=== PATIENT | male | born 1960 | race Caucasian/White ===

== ENCOUNTER 2021-04-05 07:28 | Day surgery (SDC) | payer OTHER ==
[~2021-04-05 07:28] MED LIST: Lactated Ringers 1,000 ML IV SCH; Lidocaine 1%/Sod Bicarbonate in NS 8.4% 1 ML Syringe IDERM PRN; Sodium Chloride 0.9% 10 ML Syringe FLUSH PRN
--- NOTE | 2021-04-05 08:05 | PCM.PREANE ---
Preanesthetic Assessment - Procedure Proposed Procedure: Wide local excision of melanoma back, sentinel lymph node excision, lymphoscintigraphy for lymph node mapping. - Anesthesia/Transfusion/Family Hx Anesthesia History: Prior Anesthesia Without Reaction Family History of Anesthesia Reaction: No Transfusion History: No Prior Transfusion(s) Intubation History: Unknown - Review of Systems General: No Symptoms Pulmonary: No Symptoms (ETOH: sober 5 years.) Cardiovascular: No Symptoms (CAD, HTN, elevated lipids), Palpitations (PTSD) Gastrointestinal: No Symptoms (GERD-improved) Neurological: No Symptoms (Lower back pain chronic (5)), Syncope Other: Reports: None (History of kidney disease.), Diabetes (am blood sugar= 237), Depression (PTSD), Anxiety - Physical Assessment NPO Status Date: 04/04/21 NPO Status Time: 22:00 Vital Signs: HR: 79 B/P: 141/85 Sat: 95% Temp: 97.3 Resp: 20 Height: 1.85 m Weight: 155 kg ASA Class: 3 Mental Status: Alert & Oriented x3 Airway Class: Mallampati = 2 Dentition: Reports: Normal Dentition, Caries Thyro-Mental Finger Breadths: 3 Mouth Opening Finger Breadths: 3 ROM/Head Extension: Full Lungs: Clear to Auscultation, Normal Respiratory Effort Cardiovascular: Regular Rate, Regular Rhythm, No Murmurs - Lab Values: All labs reviewed and noted and within acceptable ranges to proceed with scheduled procedure. - Imaging/EKG Impressions: EKG: SR rate=82, consider LAE, LAD, abnormal Rwave progression - Allergies Allergies/Adverse Reactions: Allergies Allergy/AdvReac Type Severity Reaction Status Date / Time No Known Allergies Allergy Verified 04/02/21 12:53 - Anesthesia Plan Pre-Op Medication Ordered: None - Acknowledgements Anesthesia Type Planned: General Anesthesia Pt an Appropriate Candidate for the Planned Anesthesia: Yes Alternatives and Risks of Anesthesia Discussed w Pt/Guardian: Yes Pt/Guardian Understands and Agrees with Anesthesia Plan: Yes PreAnesthesia Questionnaire HEENT History: Reports: Impaired Vision Cardiovascular History: Reports: Other (See Below) Other Cardiovascular History: abnormal stress test, high cholesterol Respiratory History: Reports: None Gastrointestinal History: Reports: Colon Polyp, GERD Genitourinary History: Reports: None HARP REPAIRER History: Reports: None Musculoskeletal History: Reports: None Neurological History: Reports: Other (See Below) Other Neuro History: syncope Psychiatric History: Reports: Anxiety, Depression, PTSD Endocrine/Metabolic History: Reports: Diabetes, Type II Hematologic History: Reports: None Immunologic History: Reports: None Oncologic (Cancer) History: Reports: None Dermatologic History: Reports: None - Infectious Disease History Infectious Disease History: Reports: None - Past Surgical History HEENT Surgical History: Reports: None Cardiovascular Surgical History: Reports: None Respiratory Surgical History: Reports: None GI Surgical History: Reports: Colonoscopy Female Surgical History: Reports: None Male Surgical History: Reports: None Endocrine Surgical History: Reports: None Neurological Surgical History: Reports: None Musculoskeletal Surgical History: Reports: Knee Replacement, Other (See Below) Other Musculoskeletal Surgeries/Procedures:: hand surgery Oncologic Surgical History: Reports: None Dermatological Surgical History: Reports: None - SUBSTANCE USE Tobacco Use Status *Q: Never Tobacco User Recreational Drug Use History: No - HOME MEDS Home Medications: Home Meds Ascorbic Acid [Vitamin C] 1,000 mg PO DAILY 04/02/21 [History] Aspirin 81 mg PO DAILY 04/02/21 [History] Cholecalciferol (Vitamin D3) [Vitamin D3] 1,000 unit PO DAILY 04/02/21 [History] Insulin Aspart [NovoLOG] 1 dose SQ TIDAC PRN 04/02/21 [History] Insulin Detemir [Levemir] 20 units SQ BEDTIME 04/02/21 [History] Omeprazole Magnesium [Prilosec Otc] 20 mg PO DAILY 04/02/21 [History] Prazosin [Minpress] 1 mg PO BEDTIME 04/02/21 [History] Zinc 50 mg PO DAILY 04/02/21 [History] atorvaSTATin Calcium [Lipitor] 40 mg PO BEDTIME 04/02/21 [History] glipiZIDE [Glucotrol XL] 2.5 mg PO BID 04/02/21 [History] lisinopriL [Lisinopril] 20 mg PO DAILY 04/02/21 [History] metFORMIN HCl [Metformin HCl] 1,000 mg PO DAILY 04/02/21 [History] tiZANidine [Zanaflex] 4 mg PO BEDTIME 04/02/21 [History] - CURRENT (IN HOUSE) MEDS Current Meds: Current Medications Lactated Ringer's (Ringers, Lactated) 1,000 mls @ 125 mls/hr IV ASDIRECTED SUSHIL Stop: 04/05/21 23:00 Lidocaine/Sodium Bicarbonate (Lidocaine 1%/Sod Bicarbonate In Ns 8.4% 1 Ml Syringe) 0.25 ml IDERM ONETIME PRN PRN Reason: Prior to IV Start Stop: 04/05/21 18:00 Sodium Chloride (Sodium Chloride 0.9% 10 Ml Syringe) 10 ml FLUSH ASDIRECTED PRN PRN Reason: Keep Vein Open Stop: 04/05/21 18:00
[2021-04-05] MEDS ORDERED: Midazolam 1 MG/ML 2 ML SDV ONE (08:16)
[2021-04-05] MEDS ORDERED: fentaNYL 250 MCG/5 ML SDV ONE (08:16)
[2021-04-05] MEDS ORDERED: Propofol 200 MG/20 ML SDV ONE (08:16)
[2021-04-05] MEDS ORDERED: Rocuronium 50 MG/5 ML Vial ONE ×2 (08:17→13:06)
[2021-04-05] MEDS ORDERED: Albuterol 0.083% 2.5 MG/3 ML Neb Soln NEB ONE (09:00)
[2021-04-05] MEDS ORDERED: ceFAZolin 1 GM Vial ONE ×3 (10:00→15:13)
[2021-04-05] MEDS ORDERED: Dexamethasone 4 MG/ML 5 ML MDV ONE (10:01)
[2021-04-05] MEDS ORDERED: Ondansetron 4 MG/2 ML SDV ONE (10:01)
--- NOTE | 2021-04-05 10:43 | NM ---
Lymphoscintigraphy: 1.0 mCi of technetium 99m filtered sulfur colloid was given by ordering physician. Scintigraphic imaging was then obtained in coronal planes overlying both chest and axillary regions. Additional axial views were obtained of the pelvis. Findings: Multiple lymph nodes are enhancing within both axillary regions. No abnormal activity is seen within either inguinal regions. Impression: 1. Increased activity is noted with lymph nodes within both axillary regions. Diagnostic code #3
[2021-04-05] MEDS ORDERED: Methylene Blue 50 MG/10 ML Ampule ONE (11:07)
[2021-04-05] MEDS ORDERED: Dextrose 5% in Water 100 ML ONE (11:08)
[2021-04-05] MEDS ORDERED: Lactated Ringers 1,000 ML ONE ×2 (11:22→12:28)
[2021-04-05] MEDS: Lidocaine 1% with EPINEPHrine 1:100,000 10 ML MDV ONE ×2 (11:26→13:14)
[2021-04-05] MEDS ORDERED: ePHEDrine 50 MG/ML SDV ONE ×2 (11:42→13:35)
[2021-04-05] MEDS ORDERED: Lidocaine 1% with EPINEPHrine 1:100,000 10 ML MDV ONE ×2 (11:46→13:18)
[2021-04-05] MEDS ORDERED: Bacitracin Oint 15 GM Tube ONE ×2 (12:42→16:47)
[2021-04-05] MEDS ORDERED: Glycopyrrolate 0.2 MG/ML SDV ONE ×2 (13:07)
[2021-04-05] MEDS ORDERED: Ketorolac 30 MG/ML SDV ONE (13:07)
[2021-04-05] MEDS ORDERED: fentaNYL 100 MCG/2 ML SDV ONE (14:37)
[2021-04-05] MEDS ORDERED: Albuterol 6.7 GM Inhaler INH ONE (14:49)
[2021-04-05] MEDS ORDERED: fentaNYL 100 MCG/2 ML SDV IVPUSH PRN (15:44)
[2021-04-05] MEDS ORDERED: HYDROmorphone 0.5 MG/0.5 ML Syringe IVPUSH PRN (15:44)
[2021-04-05] MEDS ORDERED: Ondansetron 4 MG/2 ML SDV IVPUSH PRN (15:44)
--- NOTE | 2021-04-05 15:46 | PCM.POSTAN ---
POST ANESTHESIA ASSESSMENT - MENTAL STATUS Mental Status: Confused - VITAL SIGNS Vital Signs: Last Vital Signs Temp 36.6 C 04/05/21 15:35 Pulse 95 04/05/21 15:35 Resp 19 04/05/21 15:35 BP 159/78 H 04/05/21 15:35 Pulse Ox 98 04/05/21 15:35 - RESPIRATORY Respiratory Status: Respiratory Rate WNL, Airway Patent, O2 Saturation Stable - CARDIOVASCULAR CV Status: Pulse Rate WNL, Elevated Blood Pressure - GASTROINTESTINAL GI Status: No Symptoms - PAIN Pain Score: 0 - POST OP HYDRATION Hydration Status: Adequate & Stable
--- NOTE | 2021-04-05 16:19 | PCM48HPAN ---
Post Anesthesia Note - EVALUATION WITHIN 48HRS OF ANESTHETIC Vital Signs in Normal Range: Yes Patient Participated in Evaluation: Yes Respiratory Function Stable: Yes Airway Patent: Yes Cardiovascular Function Stable: Yes Hydration Status Stable: Yes Pain Control Satisfactory: Yes Nausea and Vomiting Control Satisfactory: Yes Mental Status Recovered: Yes Vital Signs: Last Vital Signs Temp 36.6 C 04/05/21 15:35 Pulse 74 04/05/21 16:11 Resp 22 H 04/05/21 16:11 BP 153/82 H 04/05/21 16:11 Pulse Ox 99 04/05/21 16:11
[2021-04-05 17:00] VITALS: BP 162/83; PULSE 78
--- NOTE | 2021-04-05 17:26 | OR ---
DATE OF OPERATION: 04/05/2021 SURGEON: Marlyn Montanez MD PREOPERATIVE DIAGNOSIS: Malignant melanoma. POSTOPERATIVE DIAGNOSIS: Malignant melanoma. OPERATION PERFORMED: 1. Injection of radioactive tracer (technetium-99m) for for sentinel lymph node mapping (lymphoscintigraphy) 2. Wide local excision of the malignant melanoma in right mid back, wound size, 5.3 cm x 5.3 cm. 3. Rhomboid ([place]homberg) fasciocutaneous flap reconstruction 4. [place] lymph node mapping using both technetium-99m and methylene blue. 5. [place] lymph node excision in bilateral axillary sites. ANESTHESIA: General endotracheal with local anesthetic consisting 1% lidocaine with epinephrine 1:100,000. Total local anesthetic use was 60 mL. ESTIMATED BLOOD LOSS: 50 mL. COMPLICATIONS: None. INDICATION AND CONSENT: Mr. Moscoso is a 61-year-old male who was found to have a malignant melanoma of the right mid back that depth was 8 mm and with positive deep margins. After shave biopsy back in January, the patient underwent a PET scan, which did not show any malignant distant disease. I saw the patient in my clinic and we discussed, did an exam, did not find any clinically palpable nodes in the axilla, supraclavicular, or inguinal. Therefore, I offered the patient a wide local excision with sentinel lymph node biopsy using lymphoscintigraphy. We discussed risks, benefits, and alternatives, and informed consent was obtained. DESCRIPTION OF PROCEDURE: The patient was met in the preop area and was taken to the Radiology suite. Then technetium-99 was injected in the four quadrants around the lesion. Then, lymphoscintigraphy imaging was performed and we noted that he had positive sentinel lymph nodes in bilateral axilla, but no inguinal or supraclavicular nodes. Then, the patient was eventually taken to the operating room, placed in left lateral decubitus position and padded appropriately. Then, 2 mL of methylene blue was injected in four quadrants around the melanoma site and this area was massaged for 5 minutes. Once this was done, then the melanoma site was prepped and draped in the usual sterile fashion. Formal time-out was performed prior to the start of the procedure. The patient received Ancef 3 g for preop antibiotics. Then, we began the procedure by marking the excision area. We measured the lesion, it was about 1.3 cm. Then, we measured a grossly normal margin of 2 cm around the lesion giving us a total of 5.3 cm in diameter. This would have required excision of at least 15 cm of ovoid shape around the lesion to be able to have a good chance of closure of the lesion. Because this would have been a large wound with difficult closure, decision was made to plan for a local rhomboid flap. Therefore, to this end, the rhomboid shape was created around the planned lesion and the flap was also marked out and planned. Then, the entire area was infiltrated with a total of 40 mL of local anesthetic and we began the excision. The lesion was excised using a scalpel as well as cautery to obtain a rhomboid shape. The excision was carried down all the way down to and including the muscle fascia. The superior margin was marked with a short stitch and lateral margin was marked with a long stitch. Then, a rhomboid local flap was released. The entire excision area was undermined and flap was placed to cover the defect without much tension. The flap was sutured in place in two layers. The first layer was a deep tissue layer which was reapproximated with 3- 0 Vicryl stitches and the skin was brought together with 3-0 Prolene stitches in interrupted fashion. Then bacitracin was placed over the top, followed by Telfa and dry gauze and abdominal binder. When this part of the procedure was done, we turned the patient into supine position, moved the patient to the operating room table and prepared and explored the bilateral axillae. The hair from the axilla sites was clipped and the bilateral axillae were prepped and draped in the usual sterile fashion. Another time-out was performed prior to starting of the sentinel lymph node dissection. Neoprobe was used to map the lymph nodes. We started on the left axilla. The 5 cm incision was made just at the hairline in the left axilla and dissection carried down through the subcutaneous tissue. The clavipectoral fascia was opened. The Neoprobe was used to guide us to find the area of the hottest nodule. This was found and growing grasped with a Deysi. The fatty tissue around it was dissected and removed. This hot nodule had counts up to 1406. This was hot but not blue. Then we again mapped the lymphatic system, we were able to find another hot lymph node. This one was hot and blue and counts were about 314 maximum. This was also grasped and released from surrounding tissue using Harmonic Scalpel and removed. This was also passed in for pathology. Then, we used the Neoprobe again to survey the axilla area. There were no other hot or blue lymph nodes. Then, the axillary incision was inspected, irrigated. There was some oozing at the bottom of the incision. These were cauterized to completely stop the bleeding until hemostasis was obtained. Next, we closed the axilla in layers. Deeper layers were closed with 3-0 stitches. The clavipectoral fascia was also reapproximated with 3-0 Vicryl stitches. The subcutaneous fat was also reapproximated with 3-0 Vicryl stitches. Then, the skin was reapproximated with 4-0 Monocryl. Dermabond was applied. This marked the end of the dissection in this site. Then, we turned our attention to the right exam. Similarly, Neoprobe was used to guide to where the hot lymph node was. A 5 cm incision was made. Dissection was carried down with Bovie through the subcutaneous tissue. Clavipectoral fascia was opened and using guidance from the Neoprobe, we were able to find the hot nodule that was hot but not blue. This was dissected using Harmonic scalpel and removed. The highest count in this one was 2181. Then once this was removed, we inspected the right axilla. There was no other hot or blue lymph nodes in this area. Then, area was irrigated. Hemostasis was obtained and closed again in layers with deep layers closed with 3-0 Vicryl stitches, clavipectoral fascia reapproximated with 3-0 Vicryl stitches, subcutaneous tissue 3-0 Vicryl stitches, and skin was approximated with 3-0 Vicryl stitches. Dermabond was applied in this area. Then, at this point, we concluded the procedure. The patient was awoken, extubated, and taken to the PACU. The patient was allowed to recover, will be allowed to return home and follow up with me in 10 days. MMODAL /[id number] CRICKET
== END 2021-04-05 16:53 | disposition home or self-care (01) ==
LOC: JD.SDS 07:28
PROVIDERS: ATTEND Surgery
DX: C43.59 Malignant melanoma of other part of trunk (principal); I25.10 Atherosclerotic heart disease of native coronary artery without angina pectoris; E78.5 Hyperlipidemia, unspecified; E11.22 Type 2 diabetes mellitus with diabetic chronic kidney disease; E66.9 Obesity, unspecified; Z68.42 Body mass index [BMI] 45.0-49.9, adult; I12.9 Hypertensive chronic kidney disease with stage 1 through stage 4 chronic kidney disease, or unspecified chronic kidney disease; N18.9 Chronic kidney disease, unspecified; Z79.899 Other long term (current) drug therapy
CPT/HCPCS: 11606; 15734; 38525; 38792; 78195; 82947; 88305; 88307; 88341; 88342; 94640; A9270; A9541; J0690; J1100; J2250; J2370; J2405; J2704; J2710; J3010; J3490; J7120; 00300; J1885